=== PATIENT | female | born 1970 | race Caucasian/White ===

== ENCOUNTER 2018-10-27 23:08 | Emergency (ER) | payer OTHER ==
[~2018-10-27] VITALS: Ht 162.6 cm; Wt 83.0 kg
--- NOTE | 2018-10-27 23:22 | NUR ---
Pt bib private ambulance from home with c/o weakness, fever, chills, cough x 4 days. Pt states she was seen at [facility] 1 day ago for same s/s & was given rx for cefpodoxime, spiriva inhaler, ventolin inhaler, & codeine-guafinesin. Pt stated she started z-pack yesterday. Pt placed on monitor. Safety measures implemented. Denies chest pain/shortness of breath. Denies N/V/D. Will ctm.
--- NOTE | 2018-10-27 23:35 | NUR ---
Dr. Leo STEIN MD at bedside to evaluate pt.
[2018-10-28] MEDS ORDERED: ALBUTEROL SULFATE 2.5 MG/3 ML NEBU ONE (00:27)
[2018-10-28] MEDS ORDERED: ALBUTEROL SULFATE 2.5 MG/3 ML NEBU NEB ONE (00:30)
[2018-10-28] MEDS ORDERED: OSELTAMIVIR PHOSPHATE 75 MG CAPSULE PO ONE (01:30)
[2018-10-28] MEDS ORDERED: CEFTRIAXONE 1 G in IV DEXTROSE 5% 50 ML IV ONE (01:30)
[2018-10-28] MEDS ORDERED: IV NORMAL SALINE 1000 ML BAG IV ONE (01:30)
[2018-10-28] MEDS ORDERED: OSELTAMIVIR PHOSPHATE 75 MG CAPSULE ONE (01:45)
[2018-10-28] MEDS ORDERED: CEFTRIAXONE 1 G VIAL ONE (01:45)
[2018-10-28 01:54] LABS: BASOPHILS % (AUTO) 0.3 % (0.0-2.0); CREATININE 0.9 mg/dL (0.6-1.3); HEMATOCRIT 37.1 % (31.2-41.9); HEMOGLOBIN 12.3 g/dL (10.9-14.3); LYMPHOCYTES # (AUTO) 1.1 K/uL (20.0-40.0); LYMPHOCYTES % (AUTO) 28.9 % (20.5-51.5); MEAN CORPUSCULAR HEMOGLOBIN 26.2 uug (24.7-32.8); MEAN CORPUSCULAR HGB CONC 33 g/dL (32.3-35.6); MEAN CORPUSCULAR VOLUME 78.9 fL (75.5-95.3); MONOCYTES # (AUTO) 0.2 K/uL (2.0-10.0); MONOCYTES % (AUTO) 5.4 % (0.0-11.0); NEUTROPHILS # (AUTO) 2.6 K/uL (1.8-8.9); NEUTROPHILS % (AUTO) 65.4 % (38.5-71.5); PLATELET COUNT (AUTO) 177 K/uL (179-408); POTASSIUM 3.5 mmol/L (3.5-5.1); RED BLOOD CELL COUNT(AUTO) 4.71 MIL/uL (3.63-4.92); WHITE BLOOD COUNT (AUTO) 3.9 K/uL (3.8-11.8)
[2018-10-28 02:00] LABS: BILIRUBIN,DIRECT 0.1 mg/dL (0.0-0.2); BILIRUBIN,TOTAL 0.6 mg/dL (0.2-1.0); TOTAL PROTEIN, SERUM 7.2 g/dL (6.4-8.2)
--- NOTE | 2018-10-28 02:27 | NUR ---
Placed call to [facility] (spoke brandyn Pryor). Pending call back from Adrian HOOVER.
--- NOTE | 2018-10-28 02:32 | NUR ---
Dr. Leo STEIN MD speaking to Adrian HOOVER on telephone.
--- NOTE | 2018-10-28 02:50 | NUR ---
Pt states she wants to go home and understands discharge instructions.
--- NOTE | 2018-10-28 03:17 | NUR ---
IV removed. Catheter intact and site benign. Pressure and 4x4 gauze applied to site. No bleeding noted.
--- NOTE | 2018-10-28 03:35 | NUR ---
Patient discharged to home in stable conditon. Written and verbal after care instructions given. Patient verbalizes understanding of instructions. Pt states she feels much better. Pt left ER via [facility] [employer] [facility] (voucher [id number], account no. [id number]).
[2018-10-28 03:38] VITALS: BP 104/77
== END 2018-10-28 03:40 | disposition home or self-care (01) ==
LOC: ER 23:09
DX: J18.9 Pneumonia, unspecified organism (principal); J10.1 Influenza due to other identified influenza virus with other respiratory manifestations
CPT/HCPCS: 36415; 71045; 80048; 80076; 83605; 85025; 87040 ×2; 87400; 94640; 96365; 99284; J0696; J7060; A4663; J7030